=== PATIENT | female | born 1985 | race Caucasian/White ===

== ENCOUNTER 2016-08-12 12:13 | Emergency (ER) | payer BC ==
[2016-08-12 12:22] VITALS: BP 118/89; PULSE 98; RESP 16; TEMP 98.6; O2SAT 97
[2016-08-12] MEDS ORDERED: DEXAMETHASONE 4 MG TAB PO ONE (12:30)
[2016-08-12] MEDS ORDERED: OXYMETAZOLINE 30 ML NASAL SPRAY EACHNARE ONE (12:30)
--- NOTE | 2016-08-12 12:33 | EDPHY ---
H & P Stated Complaint: Productive cough, sore throat, sinus congestion, runny nose, BLAIR x 7 days Time Seen by Provider: 08/12/16 12:26 HPI/ROS: CHIEF COMPLAINT: Sinus congestion, cough HISTORY OF PRESENT ILLNESS: Patient is a 31-year-old female who comes to the emergency department complaining of sinus congestion and cough for the last 7 days. Several of her friends that she lives with have the same. No sore throat , no difficulty breathing. Headache or neck pain. She states that she had a fever yesterday but not today. REVIEW OF SYSTEMS: Constitutional: She HPI EENTM: See HPI Respiratory: See HPI Cardiac: denies: chest pain, irregular heart rate, lightheadedness, palpitations Gastrointestinal/Abdominal: denies: abdominal pain, diarrhea, nausea, vomiting, blood streaked stools Genitourinary: denies: dysuria, frequency, hematuria, pain Musculoskeletal: denies: joint pain, muscle pain Skin: denies: lesions, rash, jaundice, bruising Neurological: denies: headache, numbness, paresthesia, tingling, dizziness, weakness Hematologic/Lymphatic: denies: blood clots, easy bleeding, easy bruising Immunologic/allergic: denies: HIV/AIDS, transplant EXAM: GENERAL: Well-appearing, well-nourished and in no acute distress. HEAD: Atraumatic, normocephalic. EYES: Pupils equal round and reactive to light, extraocular movements intact, sclera anicteric, conjunctiva are normal. ENT: TMs clear effusions , nares congested , oropharynx clear without exudates. Moist mucous membranes. NECK: Normal range of motion, supple without lymphadenopathy or JVD. LUNGS: Breath sounds clear to auscultation bilaterally and equal. No wheezes rales or rhonchi. HEART: Regular rate and rhythm without murmurs, rubs or gallops. ABDOMEN: Soft, nontender, normoactive bowel sounds. No guarding, no rebound. No masses appreciated. BACK: No CVA tenderness, no spinal tenderness, step-offs or deformities EXTREMITIES: Normal range of motion, no pitting or edema. No clubbing or cyanosis. NEUROLOGICAL: Cranial nerves II through XII grossly intact. Normal speech, normal gait. 5/5 strength, normal movement in all extremities, normal sensation PSYCH: Normal mood, normal affect. SKIN: Warm, dry, normal turgor, no visible rashes or lesions. Source: Patient Exam Limitations: No limitations - Personal History LMP (Females 10-55): Now Current Tetanus Diphtheria and Acellular Pertussis (TDAP): Yes Tetanus Vaccine Date: within 10 years - Medical/Surgical History Hx Asthma: No Hx Chronic Respiratory Disease: No Hx Diabetes: No Hx Cardiac Disease: No Hx Renal Disease: No Hx Cirrhosis: No Hx Alcoholism: No Hx HIV/AIDS: No Hx Splenectomy or Spleen Trauma: No Other PMH: Anxiety, depression, elective -D/C - Family History Significant Family History: No pertinent family hx - Social History Smoking Status: Current every day smoker Alcohol Use: Sober Drug Use: None Constitutional: Initial Vital Signs Temperature (C) 37 C 08/12/16 12:16 Heart Rate 98 08/12/16 12:16 Respiratory Rate 16 08/12/16 12:16 Blood Pressure 118/89 H 08/12/16 12:16 O2 Sat (%) 97 08/12/16 12:16 O2 Delivery Mode Room Air Allergies/Adverse Reactions: No Known Allergies Allergy (Verified 08/12/16 12:22) Home Medications: Medication Instructions Recorded Lexapro 08/12/16 Vistaril 08/12/16 Medical Decision Making ED Course/Re-evaluation: The patient has viral syndrome. I will start her on decongestant and a single dose of steroids for symptom relief. We discussed rest and hydration. She is happy with this and declines further workup or testing. Differential Diagnosis: Partial list of the Differential diagnosis considered include but were not limited to; viral syndrome, allergies, strep throat, otitis media, and although unlikely based on the history and physical exam, I also considered meningitis, sepsis, abscess. I discussed these differential diagnoses and the plan with the patient as well as the usual and expected course. The patient understands that the diagnosis is provisional and that in medicine we are not always correct and that further workup is often warranted. Usual and customary warnings were given. All of the patient's questions were answered. The patient was instructed to return to the emergency department should the symptoms at all worsen or return, otherwise to followup with the physician as we discussed. - Data Points Medications Given: Discontinued Medications Dexamethasone (Decadron) 10 mg PO EDNOW ONE Stop: 08/12/16 12:31 Last Admin: 08/12/16 12:37 Dose: 10 mg Oxymetazoline HCl (Afrin Nasal [place]) 2 sprays EACHNARE EDNOW ONE Stop: 08/12/16 12:31 Last Admin: 08/12/16 12:36 Dose: 2 spray Departure - Departure Disposition: Home, Routine, Self-Care Clinical Impression: Upper respiratory tract infection Qualifiers: URI type: unspecified viral URI Qualified Code(s): J06.9 - Acute upper respiratory infection, unspecified Condition: Fair Instructions: Oxymetazoline (Into the nose), Upper Respiratory Infection (ED) Referrals: Doctor Not,On Staff, MD [Primary Care Provider] - As per Instructions Buddy Fraser MD [Medical Doctor] - As per Instructions
== END 2016-08-12 12:40 | disposition home or self-care (01) ==
LOC: CED 12:13
DX: J06.9 Acute upper respiratory infection, unspecified (principal); F17.200 Nicotine dependence, unspecified, uncomplicated